=== PATIENT | male | born 1970 | race Caucasian/White ===

== ENCOUNTER 2023-10-22 12:18 | Inpatient (IN) ==
--- NOTE | 2023-10-22 12:23 | ED Triage Note ---
Date of Service October 22, 2023 Provider in Triage Author: Chapincito Hutton History of Present Illness This patient was briefly evaluated while in triage. An abbreviated physical exam was performed. This patient is a 53-year-old Male who presents to the ED for evaluation of chest pressure, increased heart rate and sensation like he is going to pass out. Patient is concerned that he was having a heart issue, with sensation of feeling like he was going to pass out over the past 20 minutes. Symptoms started 5 days ago with what he thought was a panic attack. Patient reports that he did have some pain in the left jaw area on Wednesday as well. He describes it as a pressure sensation. Patient denies any pain radiating into the back or abdomen. Patient rates his discomfort a 6 out of 10. Physical Exam CONSTITUTIONAL: Healthy and well nourished. Alert and oriented X 3. HEENT: No scleral icterus or conjunctival injection. RESPIRATORY: Clear to auscultation bilaterally with no wheezing, crackles, rhonchi or stridor. CARDIOVASCULAR: Regular rate and rhythm with no murmurs, rubs or gallops. INTEGUMENTARY: No rash or other significant dermatologic conditions noted. HEMATOLOGIC: No ecchymosis or petechiae. PSYCHIATRIC: Positive affect. NEUROLOGIC: No focal neurologic deficits noted. Initial orders for labs and / or imaging were placed and patient was placed in the waiting area until a bed is available. Please see further documentation for the full ED course.
[2023-10-22] MEDS: SODIUM CHLORIDE 0.9% 500 ML IV SCH (12:38)
[2023-10-22] MEDS ORDERED: STAT IV Infusion **Titration per Protocol STA ×2 (12:43→14:09)
[2023-10-22] MEDS: dilTIAZem HCl 5 MG/ML 5 ML VIAL IV STA (12:49)
[2023-10-22] MEDS: dilTIAZem HCL 125 MG in DEXTROSE 5% 100 ML IV SCH (12:51)
[2023-10-22 13:02] LABS: Basophils # (auto) 0.08 K/uL (0.00-0.20); Basophils % (auto) 0.6 %; Eosinophils # (auto) 0.19 K/uL (0.00-0.50); Eosinophils % (auto) 1.5 %; Hematocrit (blood only) 47.4 % (42.0-52.0); Hemoglobin 16.5 g/dl (14.0-18.0); Immature Granulocytes # (auto) 0.04 K/uL (0.01-0.20); Immature Granulocytes % (auto) 0.3 %; Lymphocytes # (auto) 4.01 K/uL (1.20-3.40); Lymphocytes % (auto) 32.5 %; Mean Corpuscular Hemoglobin 28.2 pg (25.0-34.0); Mean Corpuscular Hgb Conc 34.8 g/dL (32.0-36.0); Monocytes # (auto) 1.16 K/uL (0.11-0.59); Monocytes % (auto) 9.4 %; Neutrophils # (auto) 6.86 K/uL (1.40-6.50); Neutrophils % (auto) 55.7 %; Platelet Count 347 K/uL (130-400); RDW Coefficient of Variation 12.9 % (11.5-14.5); RDW Standard Deviation 37.7 fL (36.4-46.3); Red Blood Count 5.85 M/uL (4.70-6.10); White Blood Count 12.34 K/ul (4.8-10.8)
[2023-10-22] MEDS: MAGNESIUM SULFATE / D5W 1 GM/100 ML BAG IV STA (13:07)
--- NOTE | 2023-10-22 13:16 | Emergency Department Note ---
Impression & Plan Atrial fibrillation with rapid ventricular response, Near syncope, Palpitations, Chest tightness ED Provider Note NAME: RAEANN MARINA AGE: 53 SEX: M : 1970 ARRIVES VIA: Walk-In INFORMANT: [Patient] ED PROVIDER(S): [Ian Jack MD] CHIEF COMPLAINT: Cardiac assessment HISTORY OF PRESENT ILLNESS: The patient is a 53-year-old male who states that for 6 days, he has noticed intermittent symptoms. He just does not feel well, there is a tightness across his chest, there is a fluttering of his chest, he has felt dizzy and lightheaded and short of breath. He really notices the shortness of breath with exertion. Today, he felt faint while driving and the palpitations seemed worse. He presents for evaluation. Patient states that he did start a new prescription of metformin around the same time his symptoms began, otherwise, no medication changes. The patient has no known cardiac or pulmonary history. PMHx/PSHx/Social Hx: See Below PHYSICAL EXAM: GENERAL: Patient is in no acute distress. HEENT: No acute trauma, normocephalic atraumatic, mucous membranes moist, no nasal congestion. NECK: No stridor, no adenopathy, no meningismus, trachea is midline. LUNGS: Clear to auscultation bilaterally, no wheeze, no rhonchi, breath sounds equal. HEART: Tachycardic and irregular, no obvious murmur. ABDOMEN: Soft, nontender, no peritonitis. EXTREMITIES: No cyanosis, full range of motion of all the joints without pain or difficulty. NEUROLOGIC: Oriented x 3, no acute motor or sensory deficits, no focal weakness. SKIN: No jaundice, no diaphoresis. DIFFERENTIAL DIAGNOSIS: SVT, A-fib, a flutter, V. tach, AK, electrolyte imbalance, thyroid disorder, among others. EMERGENCY DEPARTMENT PROCEDURES: MEDICAL DECISION MAKING: There is a mild leukocytosis, this could be consistent with infection or just the stress of his presentation. There was a normal hemoglobin and platelet count. No coagulopathy. D-dimer testing was negative. A negative D-dimer certainly makes PE less likely. There was no significant electrolyte abnormality, no renal failure. The patient did not have findings of pancreatitis. TSH was slightly high however, the T4 was normal. ECG showed a rapid atrial fibrillation. Cardiac enzyme testing x 1 is not consistent with acute cardiac injury. Chest x-ray did not show mediastinal widening, pneumonia or pneumothorax. A fullness was seen to the right superior mediastinum for which nonemergent CT imaging was recommended. The patient was quite tachycardic and found to be in a rapid A-fib. At times, he would have a few sinus beats and then go back into a rapid A-fib. Patient was aggressively managed. He was given a 500 cc saline bolus. He received 2.5 mg of IV metoprolol. He was given 1 g of IV magnesium. He received a bolus of IV diltiazem and was placed on a diltiazem drip. He was eventually given a bolus of IV amiodarone and placed on an amiodarone drip. I did speak with [facility] cardiology. They recommended starting amiodarone in addition to the diltiazem and then titrating off the diltiazem once the heart rate was adequately controlled. At this point, the cause for his dysrhythmia is unclear. He is in need of a hospital stay and further cardiac workup. I did speak with the patient and case management, the on-call hospitalist was consulted. Patient's heart rate has improved with the medications provided in the ED. Prior/Outside records/notes reviewed: None ECG per my interpretation: Indication was palpitations and shortness of breath. The ECG shows a rapid atrial fibrillation with a rate of around 193. There is some nonspecific ST change. There is no ST elevation, no PVCs. The QTc is 355. Continuous Cardiac Monitoring per my interpretation: An order was placed for continuous cardiac monitoring. The monitor shows a rate of 152 with atrial fibrillation. Imaging/x-ray results per my interpretation: Chest x-ray does not show mediastinal widening, pneumonia or pneumothorax. Chronic Medical/Social conditions affecting care: Care/Management discussed with: Case management and the on-call hospitalist. Cardiology-Dr. Ramírez Level of care consideration(s): After review of the information above and other included data: --I believe the patient requires escalation of care to admission Critical Care Note: I have personally spent 49 minutes of critical care time in the direct management of this patient. This includes bedside care, interpretation of diagnostic studies, and testing, discussion with consultants, patient, and family members, and other required patient management activities. This 49 minutes is in excess of all separately billable procedures. DISPOSITION: Admission Past Med/Surg History Medical History Slow to wake up after anesthesia Prediabetes Achalasia of esophagus Hypertension Fatty infiltration of liver Esophageal reflux Surgical History History of wisdom tooth extraction History of removal of cyst History of esophagogastroduodenoscopy (EGD) History of Marcus fundoplication (~2011) Family History Grandmother (Paternal) Stroke Father Gout Lung cancer Mother Hypertension Stroke Dementia Uncle Epilepsy Other No family history of adverse response to anesthesia Denies family history of Colon cancer Ovarian cancer Prostate cancer Myocardial infarction Breast cancer Social History Smoking Status: Never smoker Second Hand Exposure: No; Do You Dip or Chew Tobacco: No; Hx Alcohol Use: Yes Alcohol type: beer and hard liquor Alcohol Intake Frequency: 2-3 x/Week Hx Substance Use: No Preferred Language: Lao Communication Ability: Effective Visual Impairment: No Limitations Hearing Ability: Normal Inspector And Clipper Required: No Beliefs That Will Affect Care: None marital status: Current Living Situation: Spouse current occupational status: employed 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 How many Children do You have: 0 Feels Safe at Home: Yes Childhood Exposure to Second-Hand Smoke: Yes Diet: regular caffeine: Yes during the past year weight has: decreased > 10 lbs Dental Care, Regularly: Yes Physical Activity Frequency: 1-2 Times per Week Seatbelt Use: always Sunscreen Use: Yes Assistive Devices: Contacts and Glasses Allergies Allergies Allergy/AdvReac Type Severity Reaction Status Date / Time pollen extracts Allergy Mild Runny Nose Verified 10/01/23 08:07 No Known Drug Allergies Allergy Verified 10/01/23 08:07 Home Meds Home Medications Medication Instructions Recorded Confirmed cyanocobalamin (vitamin B-12) 2,000 mcg PO DAILY 10/22/23 10/22/23 2,000 mcg tablet,extended release (Vitamin B-12 ER) esomeprazole magnesium 40 mg 40 mg PO DAILY 10/22/23 10/22/23 capsule,delayed release (Nexium) lisinopril 10 mg tablet 10 mg PO QPM 10/22/23 10/22/23 metformin 1,000 mg tablet 1,000 mg PO BID 10/22/23 10/22/23 Results & Data (ED) Vital Signs Vital Signs - 24 hr 10/22/23 12:21 10/22/23 12:36 10/22/23 12:37 Temperature 37.0 C Temperature Source Temporal Artery Scan Pulse Rate 95 H 218 H 166 H Pulse Rate from SpO2 Sensor Respiratory Rate 20 26 H Respiratory Effort / Characteristics Non-Labored Spontaneous Respiratory Depth Normal Blood Pressure 107/49 L Blood Pressure Mean 68 Pulse Oximetry 100 Oxygen Delivery Method Room Air Sepsis Recent Fever Within 48 Hours No Sepsis New/Unexplained Change in Mental Status No Sepsis Action Taken by Nursing No Action Required 10/22/23 12:38 10/22/23 12:38 10/22/23 12:40 Temperature Temperature Source Pulse Rate 197 H 202 H Pulse Rate from SpO2 Sensor 96 H 109 H Respiratory Rate 24 19 Respiratory Effort / Characteristics Respiratory Depth Blood Pressure 133/103 H Blood Pressure Mean 105 Pulse Oximetry 97 98 Oxygen Delivery Method Sepsis Recent Fever Within 48 Hours Sepsis New/Unexplained Change in Mental Status Sepsis Action Taken by Nursing 10/22/23 12:50 10/22/23 12:56 10/22/23 13:00 Temperature Temperature Source Pulse Rate 225 H 103 H 130 H Pulse Rate from SpO2 Sensor 206 H 101 H Respiratory Rate 18 15 Respiratory Effort / Characteristics Respiratory Depth Blood Pressure Blood Pressure Mean Pulse Oximetry 96 95 Oxygen Delivery Method Sepsis Recent Fever Within 48 Hours Sepsis New/Unexplained Change in Mental Status Sepsis Action Taken by Nursing 10/22/23 13:03 10/22/23 13:10 10/22/23 13:10 Temperature Temperature Source Pulse Rate 152 H 160 H Pulse Rate from SpO2 Sensor 87 Respiratory Rate 22 Respiratory Effort / Characteristics Respiratory Depth Blood Pressure 125/96 Blood Pressure Mean 104 Pulse Oximetry 97 Oxygen Delivery Method Sepsis Recent Fever Within 48 Hours Sepsis New/Unexplained Change in Mental Status Sepsis Action Taken by Nursing 10/22/23 13:20 10/22/23 13:21 10/22/23 13:21 Temperature Temperature Source Pulse Rate 166 H 155 H Pulse Rate from SpO2 Sensor 86 101 H Respiratory Rate 20 20 Respiratory Effort / Characteristics Respiratory Depth Blood Pressure 104/72 Blood Pressure Mean 89 Pulse Oximetry 93 94 Oxygen Delivery Method Sepsis Recent Fever Within 48 Hours Sepsis New/Unexplained Change in Mental Status Sepsis Action Taken by Nursing 10/22/23 13:30 10/22/23 13:30 10/22/23 13:40 Temperature Temperature Source Pulse Rate 159 H Pulse Rate from SpO2 Sensor 73 Respiratory Rate 21 Respiratory Effort / Characteristics Respiratory Depth Blood Pressure 113/66 118/77 Blood Pressure Mean 74 92 Pulse Oximetry 94 Oxygen Delivery Method Sepsis Recent Fever Within 48 Hours Sepsis New/Unexplained Change in Mental Status Sepsis Action Taken by Nursing 10/22/23 13:40 10/22/23 13:49 10/22/23 13:50 Temperature Temperature Source Pulse Rate 152 H 170 H 147 H Pulse Rate from SpO2 Sensor 80 95 H Respiratory Rate 17 11 L Respiratory Effort / Characteristics Respiratory Depth Blood Pressure 118/77 Blood Pressure Mean Pulse Oximetry 94 94 Oxygen Delivery Method Sepsis Recent Fever Within 48 Hours Sepsis New/Unexplained Change in Mental Status Sepsis Action Taken by Nursing 10/22/23 13:51 10/22/23 13:51 10/22/23 14:00 Temperature Temperature Source Pulse Rate 171 H 133 H Pulse Rate from SpO2 Sensor 84 64 Respiratory Rate 22 19 Respiratory Effort / Characteristics Respiratory Depth Blood Pressure 93/62 L Blood Pressure Mean 67 Pulse Oximetry 94 95 Oxygen Delivery Method Sepsis Recent Fever Within 48 Hours Sepsis New/Unexplained Change in Mental Status Sepsis Action Taken by Nursing 10/22/23 14:00 10/22/23 14:10 10/22/23 14:10 Temperature Temperature Source Pulse Rate 141 H Pulse Rate from SpO2 Sensor 72 Respiratory Rate 19 Respiratory Effort / Characteristics Respiratory Depth Blood Pressure 105/80 104/65 Blood Pressure Mean 92 97 Pulse Oximetry 95 Oxygen Delivery Method Sepsis Recent Fever Within 48 Hours Sepsis New/Unexplained Change in Mental Status Sepsis Action Taken by Nursing 10/22/23 14:20 10/22/23 14:20 10/22/23 14:30 Temperature Temperature Source Pulse Rate 150 H 129 H Pulse Rate from SpO2 Sensor 80 75 Respiratory Rate 18 19 Respiratory Effort / Characteristics Respiratory Depth Blood Pressure 93/60 L Blood Pressure Mean 74 Pulse Oximetry 95 95 Oxygen Delivery Method Sepsis Recent Fever Within 48 Hours Sepsis New/Unexplained Change in Mental Status Sepsis Action Taken by Nursing 10/22/23 14:31 10/22/23 14:31 10/22/23 14:38 Temperature Temperature Source Pulse Rate 143 H 130 H Pulse Rate from SpO2 Sensor 70 Respiratory Rate 21 Respiratory Effort / Characteristics Respiratory Depth Blood Pressure 91/58 L 104/70 Blood Pressure Mean 63 Pulse Oximetry 95 Oxygen Delivery Method Sepsis Recent Fever Within 48 Hours Sepsis New/Unexplained Change in Mental Status Sepsis Action Taken by Nursing 10/22/23 14:39 10/22/23 14:39 10/22/23 14:40 Temperature Temperature Source Pulse Rate 129 H 152 H Pulse Rate from SpO2 Sensor 67 73 Respiratory Rate 13 18 Respiratory Effort / Characteristics Respiratory Depth Blood Pressure 119/65 Blood Pressure Mean 87 Pulse Oximetry 96 93 Oxygen Delivery Method Sepsis Recent Fever Within 48 Hours Sepsis New/Unexplained Change in Mental Status Sepsis Action Taken by Nursing 10/22/23 14:40 10/22/23 14:50 10/22/23 14:51 Temperature Temperature Source Pulse Rate 145 H Pulse Rate from SpO2 Sensor 74 Respiratory Rate 17 Respiratory Effort / Characteristics Respiratory Depth Blood Pressure 104/70 106/65 Blood Pressure Mean 79 67 Pulse Oximetry 93 Oxygen Delivery Method Sepsis Recent Fever Within 48 Hours Sepsis New/Unexplained Change in Mental Status Sepsis Action Taken by Nursing 10/22/23 14:51 10/22/23 15:00 10/22/23 15:01 Temperature Temperature Source Pulse Rate 141 H 149 H Pulse Rate from SpO2 Sensor 83 91 H Respiratory Rate 17 15 Respiratory Effort / Characteristics Respiratory Depth Blood Pressure 116/74 Blood Pressure Mean 81 Pulse Oximetry 95 91 Oxygen Delivery Method Sepsis Recent Fever Within 48 Hours Sepsis New/Unexplained Change in Mental Status Sepsis Action Taken by Nursing 10/22/23 15:01 Temperature Temperature Source Pulse Rate 126 H Pulse Rate from SpO2 Sensor 89 Respiratory Rate 17 Respiratory Effort / Characteristics Respiratory Depth Blood Pressure Blood Pressure Mean Pulse Oximetry 97 Oxygen Delivery Method Sepsis Recent Fever Within 48 Hours Sepsis New/Unexplained Change in Mental Status Sepsis Action Taken by Group Home Medications Current Medication List: was personally reviewed by me Laboratory Data Attestation: I reviewed the patient's lab results. 10/22/23 12:32 10/22/23 12:32 Lab Results 10/22/23 Range/Units 12:32 WBC 12.34 H (4.8-10.8) K/ul RBC 5.85 (4.70-6.10) M/uL Hgb 16.5 (14.0-18.0) g/dl Hct 47.4 (42.0-52.0) % MCV 81.0 (80.0-100.0) fL MCH 28.2 (25.0-34.0) pg MCHC 34.8 (32.0-36.0) g/dL RDW Std Deviation 37.7 (36.4-46.3) fL RDW Coeff of Gabriella 12.9 (11.5-14.5) % Plt Count 347 (130-400) K/uL MPV 11.0 (9.4-12.4) fL Immature Gran % (Auto) 0.3 % Neut % (Auto) 55.7 % Lymph % (Auto) 32.5 % Kemper % (Auto) 9.4 % Eos % (Auto) 1.5 % Baso % (Auto) 0.6 % Neut # (Auto) 6.86 H (1.40-6.50) K/uL Lymph # (Auto) 4.01 H (1.20-3.40) K/uL Kemper # (Auto) 1.16 H (0.11-0.59) K/uL Eos # (Auto) 0.19 (0.00-0.50) K/uL Baso # (Auto) 0.08 (0.00-0.20) K/uL Immature Gran # (Auto) 0.04 (0.01-0.20) K/uL PT 10.6 (9.0-12.0) Seconds INR 1.0 (0.9-1.1) APTT 27 (21-31) Seconds PTT Ratio 1.0 D-Dimer 300 (0-500) ug/L FEU Sodium 138 (136-145) mmol/L Potassium 3.8 (3.5-5.1) mmol/L Chloride 104 (98-107) mmol/L Carbon Dioxide 22 (21-32) mmol/L Anion Gap 12 H (3-11) BUN 16 (6-23) mg/dl Creatinine 1.10 (0.6-1.4) mg/dl Est Cr Clr Drug Dosing 89.6 ml/min Est GFR ( Amer) 87.7 ml/min Est GFR (Non-Af Amer) 75.7 ml/min BUN/Creatinine Ratio 14.5 (10-20) Glucose 96 (70-99(Fasting)) mg/dl Calcium 10.3 (8.6-10.3) mg/dl Magnesium 1.9 (1.7-2.4) mg/dl Total Bilirubin 0.7 (0.2-1.0) mg/dl AST 39 (13-39) U/L ALT 73 H (7-52) U/L Alkaline Phosphatase 40 (34-104) U/L Troponin I High Sens 3.1 (0-20) pg/ml Total Protein 8.0 (6.0-8.3) gm/dl Albumin 5.0 (3.4-5.0) gm/dl Globulin 3.0 (2.5-4.0) gm/dl Albumin/Globulin Ratio 1.7 (0.9-2) Lipase 24 (11-82) U/L TSH 5.532 H (0.300-4.500) uIu/ml Free T4 0.78 (0.61-1.60) ng/dl Administered Medications Amiodarone HCl/Dextrose (Nexterone / D5w) 360 mg in 200 mls @ 33.333 mls/hr IV ONE ONE Stop: 10/22/23 20:19 Last Admin: 10/22/23 15:01 Dose: 1 mg/min, 33.3 mls/hr Documented By: CECE Co-signed By: TRACY Discontinued Medications Diltiazem HCl (Diltiazem Hcl 5 Mg/Ml 5 Ml Vial) 15 mg IV NOW STA Stop: 10/22/23 12:44 Last Admin: 10/22/23 12:49 Dose: 15 mg Documented By: CECE Co-signed By: KADEN Sodium Chloride (Nss) 500 mls @ 999 mls/hr IV .Q31M ARISTEO Stop: 10/22/23 13:15 Last Infusion: 10/22/23 13:39 Dose: Infused Documented By: Admin: 10/22/23 12:38 Dose: 999 mls/hr Documented By: CECE Diltiazem HCl 125 mg/ Dextrose 125 mls @ 5 mls/hr IV .Q24H [facility]; Protocol Stop: 11/21/23 12:44 Last Titration: 10/22/23 15:44 Dose: 0 mg/hr, 0 mls/hr Documented By: CECE Co-signed By: ASIA Titration: 10/22/23 14:47 Dose: 5 mg/hr, 5 mls/hr Documented By: CECE Co-signed By: NORMA Titration: 10/22/23 13:12 Dose: 10 mg/hr, 10 mls/hr Documented By: NAYLA Co-signed By: ASIA Admin: 10/22/23 12:51 Dose: 5 mg/hr, 5 mls/hr Documented By: CEEC Co-signed By: KADEN Magnesium Sulfate/Dextrose (Magnesium Sulfate / D5w) 1 gm in 100 mls @ 100 mls/hr IV NOW STA Stop: 10/22/23 13:42 Last Infusion: 10/22/23 15:05 Dose: Infused Documented By: Admin: 10/22/23 13:07 Dose: 100 mls/hr Documented By: NAYLA Amiodarone HCl/Dextrose (Nexterone / D5w) 150 mg in 100 mls @ 600 mls/hr IV NOW STA Stop: 10/22/23 14:18 Last Admin: 10/22/23 14:44 Dose: 600 mls/hr Documented By: CECE Co-signed By: NAYLA Metoprolol Tartrate (Metoprolol Tartrate 1 Mg/Ml Vial) 2.5 mg IV NOW STA Stop: 10/22/23 13:47 Last Admin: 10/22/23 13:49 Dose: 2.5 mg Documented By: CECE Potassium Chloride (Potassium Chloride Crtab 20 Meq Tabcr) 20 meq PO NOW STA Stop: 10/22/23 14:29 Last Admin: 10/22/23 15:48 Dose: 20 meq Documented By: CECE Imaging Data Radiologist's Impression: Chest X-Ray 10/22/23 12:23 XR chest 1V portable CLINICAL HISTORY: Chest pain, nonspecific COMPARISON STUDY: Chest radiograph November 30, 2011. FINDINGS: Lung volumes are normal. Lungs are clear. There is no pneumothorax or pleural effusion. Cardiac size is normal. A right upper mediastinal contour abnormality measuring approximately 3.5 cm is noted. There is no evidence for pulmonary edema. IMPRESSION: 1. No acute cardiopulmonary findings. 2. Right upper mediastinal contour abnormality, measuring approximately 3.5 cm. This may be artifactual however a chest CT with IV contrast is recommended to exclude a vascular abnormality or lymphadenopathy. ACT 112: Negative or not required by law. Electronically signed by: Brent Boone M.D. 10/22/2023 1:42 PM Discharge Plan Visit Data Chief Complaint: Cardiac Assessment Stated Complaint: CHEST PAIN ED Provider: Ian Jack Discharge Problem: Atrial fibrillation with rapid ventricular response, Near syncope, Palpitations, Chest tightness Patient Disposition: Admitted As Inpatient Condition: Serious Discharge Instructions Interventions: ED Discharge Assessment Last Done: 10/22/23 16:04
[2023-10-22 13:30] LABS: Albumin Globulin Ratio 1.7 (0.9-2); BUN Creatinine Ratio 14.5 (10-20); Bilirubin,Total 0.7 mg/dl (0.2-1.0); Calcium 10.3 mg/dl (8.6-10.3); Creatinine Clr Calc Pharmacy 89.6 ml/min; Est GFR (African American) 87.7 ml/min; Est GFR (Non-African American) 75.7 ml/min; Magnesium 1.9 mg/dl (1.7-2.4); Potassium 3.8 mmol/L (3.5-5.1)
[2023-10-22 13:31] LABS: Troponin I High Sensitivity 3.1 pg/ml (0-20)
[2023-10-22 13:41] LABS: Thyroid Stimulating Hormone 5.532 uIu/ml (0.300-4.500)
[2023-10-22 13:42] LABS: D Dimer 300 ug/L FEU (0-500); Partial Thromboplastin Time 27 Seconds (21-31); Prothrombin Time 10.6 Seconds (9.0-12.0)
--- NOTE | 2023-10-22 13:44 | XRay Report ---
XR chest 1V portable CLINICAL HISTORY: Chest pain, nonspecific COMPARISON STUDY: Chest radiograph November 30, 2011. FINDINGS: Lung volumes are normal. Lungs are clear. There is no pneumothorax or pleural effusion. Car diac size is normal. A right upper mediastinal contour abnormality measuring approximately 3.5 cm is noted. There is no evidence for pulmonary edema. IMPRESSION: 1. No acute cardiopulmonary findings. 2. Right upper mediastinal contour abnormality, measuring approximately 3.5 cm. This may be artifactu al however a chest CT with IV contrast is recommended to exclude a vascular abnormality or lymphadeno desean. ACT 112: Negative or not required by law. Electronically signed by: Brent Boone M.D. 10/22/2023 1:42 PM
[2023-10-22] MEDS: METOPROLOL TARTRATE 1 MG/ML VIAL IV STA (13:49)
[2023-10-22] MEDS ORDERED: 0.2 MICRON FILTER SET 1 EACH IV STA (14:09)
[2023-10-22 14:36] LABS: T4 Free Thyroxine 0.78 ng/dl (0.61-1.60)
[2023-10-22] MEDS: AMIODARONE / D5W 150 MG/100 ML BAG IV STA (14:44)
[2023-10-22] MEDS: AMIODARONE / D5W 360 MG/200 ML BAG IV ONE (15:01)
--- NOTE | 2023-10-22 15:07 | History & Physical Report ---
Date of Service October 22, 2023 Assessment & Plan (1) Atrial fibrillation with RVR: Plan: -Admit to the PCU on tele -Patient's HR is currently going between afib with HR int he 90-low 100's and trying to convert back to NSR -Has been hemodynamically stable since arrival -Started to developed intermittent heart palpitations with associated lightheadedness/dizziness and left jaw pain with standing and ambulation -TSH is WNL, no recent alcohol binges, no tobacco abuse, electrolytes are WNL -Does not have LE swelling to suggest DVT, is without pleuritic chest pain, has been hemodynamically stable and stable on RA >Will continue to monitor for now -[id number] score is 2 due to his hx of DM and HT >Patient does not have a hx of major bleeding >After discussions with the patient, he would like to begin anticoagulation -Will start a low dose, weight based heparin drip w/bolus now -Continue to monitor for signs of bleeding -Continue amiodarone drip -Follow cardiology consult -Will obtain TTE -Keep potassium at or above 4 and mag at or above 2.0 -Heparin drip for DVT PPX -HH/DMII diet -AM CBC, CMP, mag, PT/INR (2) Diabetes: Plan: -Hold metformin -Monitor BSG ACHS, goal is 110-160 -Start CF of 50 ACHS for now -Adjust regimen as needed (3) Abnormal CXR: Plan: -Patient noted to have a Right upper mediastinal contour abnormality, measuring approximately 3.5 cm -Could be artifact but recommended a follow-up CT chest w/con for further evaluation -Will wait to obtain until patient is stable from his new onset afib RVR (4) Hypertension: Plan: -Currently stable -Hold lisinopril for now with acute treatment of afib rvr (5) Fatty infiltration of liver: Plan: -ALT is 73 today -Up from 58 as of 12/11/21 -No recent abdominal pain, no jaundice or icterus -Monitor am CMP (6) Esophageal reflux: Plan: -Daily pantoprazole Plan The patient was discussed with History of Present Illness Chief Complaint: heart palpitations, left jaw pain Primary Care Provider: DO Anatoliy Obrien is a 53 year old male with a PMH significant for DMII, Sjogrens syndrome, HTN, fatty liver, and GERD who presented to the [facility] ED on 10/22/23 with complaints of ongoing heart palpitations and left jaw pain which began on 10/16/23. On arrival to the ED he was found to be in new onset afib RVR with HR in the 220's and BP of 107/47 but otherwise stable. Labs were significant for a leukocytosis of 12, AG of 12 with bicarb WNL, ALT of 73, high sen trop WNL and TSH of 5.53 with free T4 of 0.78. Chest xray was read as "1. No acute cardiopulmonary findings. 2. Right upper mediastinal contour abnormality, measuring approximately 3.5 cm. This may be artifactual however a chest CT with IV contrast is recommended to exclude a vascular abnormality or lymphadenopathy.". The patient was initially given 500 mL NSS, 20 meq PO KCL, 1gm IV mag sulfate, 2.5 mg IV lopressor, and 15 mg IV Diltiazem without significant improvement. He was then placed on a Cardizem drip but this also was unsuccessful in improving his rate or rhythm. Cardiology was consulted and recommended the patient be switched to an Amiodarone drip. Prior to admission the patient was started on the Amiodarone drip with bolus. At the time of the exam the patient was sitting in bed in no acute distress. He states that when he first started to develop heart palpitations with mild left jaw pain on 10/15 he thought he was having a panic attack. He states he has had increased stress at work recently. Over the past week he has had intermittent periods of heart palpitations, lightheadedness with standing/walking, with some SOB when his palpitations were at it's worst. He denies recent significant alcohol intake, tobacco abuse, or recreational drug use. His brother does have afib as well and has had to be hospitalized multiple times in the past for RVR. He denies a previous his of major bleeding and is in agreement with starting a heparin drip for now with his CHA2DS.2-VASc score of 2, giving him an increased risk of stroke. He denies recent fever, chills, cough, chest pain, pleuritic chest pain, hemoptysis, nausea, vomiting, abd pain, dysuria hematuria, melena, diarrhea, LE swelling, and recent trauma. Please refer to Dr. Acosta's attestation for any changes to the treatment plan Allergies Allergy/AdvReac Type Severity Reaction Status Date / Time pollen extracts Allergy Mild Runny Nose Verified 10/01/23 08:07 No Known Drug Allergies Allergy Verified 10/01/23 08:07 Home Medications Medication Instructions Recorded Confirmed Type cyanocobalamin (vitamin B-12) 2,000 mcg PO DAILY 10/22/23 10/22/23 History 2,000 mcg tablet,extended release (Vitamin B-12 ER) esomeprazole magnesium 40 mg 40 mg PO DAILY 10/22/23 10/22/23 History capsule,delayed release (Nexium) lisinopril 10 mg tablet 10 mg PO QPM 10/22/23 10/22/23 History metformin 1,000 mg tablet 1,000 mg PO BID 10/22/23 10/22/23 History Past Med/Surg History Medical History Slow to wake up after anesthesia Prediabetes Achalasia of esophagus Hypertension Fatty infiltration of liver Esophageal reflux Surgical History History of wisdom tooth extraction History of removal of cyst History of esophagogastroduodenoscopy (EGD) History of Marcus fundoplication (~2011) Family History Grandmother (Paternal) Stroke Father Gout Lung cancer Mother Hypertension Stroke Dementia Uncle Epilepsy Other No family history of adverse response to anesthesia Denies family history of Colon cancer Ovarian cancer Prostate cancer Myocardial infarction Breast cancer Social History Smoking Status: Never smoker Second Hand Exposure: No; Do You Dip or Chew Tobacco: No; Tobacco Cessation Education Requested by Patient: No Hx Alcohol Use: No Hx Substance Use: No Preferred Language: Mexican Communication Ability: Effective Visual Impairment: No Limitations Hearing Ability: Normal Mdm Developer Required: Yes Beliefs That Will Affect Care: None marital status: Current Living Situation: Spouse current occupational status: employed 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 How many Children do You have: 0 Other Information That Helps Us Care for You: No Feels Safe at Home: Yes Safety Concerns: Feels Safe At This Time Childhood Exposure to Second-Hand Smoke: Yes Diet: regular caffeine: Yes during the past year weight has: decreased > 10 lbs Dental Care, Regularly: Yes Physical Activity Frequency: 1-2 Times per Week Seatbelt Use: always Sunscreen Use: Yes Assistive Devices: None Physical Exam Physical Exam: Physical Exam: General: In no acute distress, stated age, well-nourished, good hygiene HEENT: Normocephalic, atraumatic, no scleral icterus, pupils around round, symmetrical, and reactive to light, moist mucus membranes, trachea midline, no thyromegaly Chest/Pulm: No respiratory distress, symmetrical chest expansion, clear breath sounds throughout Cardiac: irregular rate and rhythm, no murmurs noted Abdomen: Negative for ascites and bruising, normoactive bowel sounds, soft, non-tender to palpation throughout Musculoskeletal: Symmetrical and without signs of acute trauma, upper and lower extremities with full ROM, no atrophy, spasticity, or flaccidity Extremities: Radial, dorsalis pedis, and posterior tibial pulses are intact and symmetrical, no edema noted in the BL LE's Skin: Warm, dry, no rashes , lesions, or scars noted Neuro: Alert and oriented to person, place, month, year, and president, no focal defects, no tremors noted Psych: No acute distress, calm and cooperative during the exam Results & Data Results & Data Vital Signs (Past 12 Hours) Vital Signs Temp Pulse Resp BP Pulse Ox O2 Del Method 10/22/23 14:40 104/10/22/23 14:40 152 H 18 93 10/22/23 14:39 129 H 13 96 10/22/23 14:39 119/65 10/22/23 14:38 130 H 104/70 10/22/23 14:31 143 H 21 95 10/22/23 14:31 91/58 L 10/22/23 14:30 129 H 19 95 10/22/23 14:20 93/60 L 10/22/23 14:20 150 H 18 95 10/22/23 14:10 104/65 10/22/23 14:10 141 H 19 95 10/22/23 14:00 105/80 10/22/23 14:00 133 H 19 95 10/22/23 13:51 171 H 22 94 10/22/23 13:51 93/62 L 04/05/24 13:50 147 H 11 L 94 10/22/23 13:49 170 H 118/77 10/22/23 13:40 152 H 17 94 10/22/23 13:40 118/77 10/22/23 13:30 159 H 21 94 10/22/23 13:30 113/66 10/22/23 13:21 155 H 20 94 10/22/23 13:21 104/72 10/22/23 13:20 166 H 20 93 10/22/23 13:10 160 H 22 97 10/22/23 13:10 125/96 10/22/23 13:03 152 H 10/22/23 13:00 130 H 15 95 10/22/23 12:56 103 H 10/22/23 12:50 225 H 18 96 10/22/23 12:40 202 H 19 98 10/22/23 12:38 197 H 24 97 10/22/23 12:38 133/103 H 10/22/23 12:37 166 H 10/22/23 12:36 218 H 26 H 10/22/23 12:21 37.0 C 95 H 20 107/49 L 100 Room Air Laboratory Results Abnormal lab results 10/22/23 Range/Units 12:32 WBC 12.34 H (4.8-10.8) K/ul Neut # (Auto) 6.86 H (1.40-6.50) K/uL Lymph # (Auto) 4.01 H (1.20-3.40) K/uL [place] # (Auto) 1.16 H (0.11-0.59) K/uL Anion Gap 12 H (3-11) ALT 73 H (7-52) U/L TSH 5.532 H (0.300-4.500) uIu/ml Diagnostic Findings Chest X-Ray 10/22/23 12:23 XR chest 1V portable CLINICAL HISTORY: Chest pain, nonspecific COMPARISON STUDY: Chest radiograph November 30, 2011. FINDINGS: Lung volumes are normal. Lungs are clear. There is no pneumothorax or pleural effusion. Cardiac size is normal. A right upper mediastinal contour abnormality measuring approximately 3.5 cm is noted. There is no evidence for pulmonary edema. IMPRESSION: 1. No acute cardiopulmonary findings. 2. Right upper mediastinal contour abnormality, measuring approximately 3.5 cm. This may be artifactual however a chest CT with IV contrast is recommended to exclude a vascular abnormality or lymphadenopathy. ACT 112: Negative or not required by law. Electronically signed by: Brent Boone M.D. 10/22/2023 1:42 PM ECG Additional Comments: Atrial fibrillation with rapid ventricular response Abnormal ECG No previous ECGs available Code Status & VTE Plan Code Status Full code VTE Prophylaxis Plan VTE Prophylaxis will be ordered: Yes Supervising Physician Co-Signing Physician Notes I personally saw and examined the patient. I verified all cespedes points and agree with Wilfredo Covington PA-C with the following exceptions and/or additions: 53 year old presents to the ER with chest pain with heart palpitations intermittently. Noted to be in a. fib with RVR in the ER. O/E HS RRR, no murmurs, Chest CTAB, Abdo SNT A/P Atrial fibrillation with RVR - now feeling much improved in NSR with IV amiodarone when seen. IV amiodarone (rhythm control) recommended by Dr Ramírez as reportedly very symptomatic with increased rate in limited effect of metoprolol and diltiazem. If echo normal in the morning would consider flecainide over amiodarone given his young age and will consult cardiology to make this decision. Continue IV heparin for stroke prophylaxis overnight then can switch to oral anticoagulation tomorrow if nothing needs to be done about his CXR finding. PG Care Time/CCT Total # of Minutes Spent Total Time Spent with Patient: Total time spent is greater than 50% in coordination of care (as documented) at patient's floor/unit and/or counseling patient: [place] [address] INT INP/OBS CARE 3/75MIN Patient Type New Medical Decision Making High Complexity Diagnoses Atrial fibrillation with RVR I48.91 Type 2 diabetes mellitus without complication, without long-term current use of insulin E11.9 Diabetes mellitus complication status: without complication Diabetes mellitus jail insulin use: without jail use Diabetes mellitus type: type 2 Abnormal CXR R93.89 Essential hypertension I10 Hypertension type: essential hypertension Fatty infiltration of liver K76.0 Gastroesophageal reflux disease without esophagitis K21.9 Esophagitis presence: without esophagitis (2) Diabetes Diabetes mellitus complication status: without complication Diabetes mellitus jail insulin 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
[2023-10-22] MEDS ORDERED: Heparin IV Adult Wt-Based Low-Dose w/ INITIAL Bolus Protocol IV SCH (15:26)
[2023-10-22] MEDS ORDERED: DEXTROSE 50% 50 ML SYRINGE IV PRN (15:32)
[2023-10-22] MEDS ORDERED: CARBOHYDRATES FOR HYPOGLYCEMIA PO PRN (15:32)
[2023-10-22] MEDS ORDERED: GLUCOSE 10 TAB/TUBE PO PRN (15:32)
[2023-10-22] MEDS ORDERED: GLUCAGON FOR INJ 1 MG VIAL SQ PRN (15:32)
[2023-10-22] MEDS ORDERED: GLUCOSE 40% GEL 15 GM TUBE PO PRN (15:32)
[2023-10-22] MEDS: POTASSIUM CHLORIDE CRTAB 20 MEQ TABCR PO STA (15:48)
[2023-10-22] MEDS: HEPARIN SOD (PORCINE) 1000 UNIT/ML IV ONE (16:43)
[2023-10-22] MEDS: HEPARIN SODIUM/DEXTROSE 25,000 UNITS/500 ML BAG IV SCH (16:44)
[2023-10-22] MEDS: PANTOprazole 40 MG TAB PO STA (17:07)
[2023-10-22] MEDS: INSULIN ASPART PER UNIT CHARGE SC SCH (18:45)
[2023-10-22] MEDS: AMIODARONE IV BOLUS & DRIP IV STA (18:58)
[2023-10-22] MEDS: AMIODARONE / D5W 360 MG/200 ML BAG IV SCH (19:55)
[2023-10-22 20:10] LABS: Appearance Urine Clear (Clear); Bacteria Urine Automated Negative (Negative); Bilirubin Urine Negative (Negative); Blood Urine Negative (Negative); Cast Urine Automated 0 /lpf (0-5); Color Urine Yellow; Epithelial Cell Urine Auto 0-5 /lpf (0-5); Glucose Urine UA Negative (Negative); Ketones Urine 1+ (Negative); Leukocyte Esterase Urine Negative (Negative); Nitrite Urine Negative (Negative); Protein Urine Trace (Negative); RBC Urine Automated 0-4 /hpf (0-4); Urobilinogen Urine Negative (Negative); WBC Urine Automated 0 /hpf (0-5)
[2023-10-22] MEDS: PANTOprazole 40 MG TAB PO SCH (21:12)
[2023-10-22] MEDS: metFORMIN HCL 500 MG TAB PO SCH (21:12)
[2023-10-23 00:15] LABS: ANTI-Xa, UFH(UnfractionatedHep 0.27 IU/ml (0.3-0.7)
[2023-10-23 06:33] LABS: Basophils # (auto) 0.06 K/uL (0.00-0.20); Basophils % (auto) 0.7 %; Eosinophils # (auto) 0.29 K/uL (0.00-0.50); Eosinophils % (auto) 3.5 %; Hematocrit (blood only) 44.7 % (42.0-52.0); Hemoglobin 15.3 g/dl (14.0-18.0); Immature Granulocytes # (auto) 0.03 K/uL (0.01-0.20); Immature Granulocytes % (auto) 0.4 %; Lymphocytes % (auto) 29.8 %; Mean Corpuscular Hgb Conc 34.2 g/dL (32.0-36.0); Mean Corpuscular Volume 81.7 fL (80.0-100.0); Mean Platelet Volume 10.9 fL (9.4-12.4); Monocytes # (auto) 0.63 K/uL (0.11-0.59); Monocytes % (auto) 7.5 %; Neutrophils # (auto) 4.89 K/uL (1.40-6.50); Neutrophils % (auto) 58.1 %; Platelet Count 268 K/uL (130-400); RDW Coefficient of Variation 12.9 % (11.5-14.5); RDW Standard Deviation 38.2 fL (36.4-46.3); Red Blood Count 5.47 M/uL (4.70-6.10)
[2023-10-23 06:55] LABS: Albumin Globulin Ratio 1.6 (0.9-2); Albumin Level 4.4 gm/dl (3.4-5.0); BUN Creatinine Ratio 14.5 (10-20); Bilirubin,Total 0.7 mg/dl (0.2-1.0); Calcium 9.3 mg/dl (8.6-10.3); Est GFR (African American) 87.7 ml/min; Est GFR (Non-African American) 75.7 ml/min; Globulin 2.8 gm/dl (2.5-4.0); Magnesium 2.1 mg/dl (1.7-2.4); Potassium 4.1 mmol/L (3.5-5.1); Total Protein 7.2 gm/dl (6.0-8.3)
[2023-10-23 06:58] LABS: Prothrombin Time 10.9 Seconds (9.0-12.0)
[2023-10-23 07:16] LABS: ANTI-Xa, UFH(UnfractionatedHep 0.26 IU/ml (0.3-0.7)
--- NOTE | 2023-10-23 07:36 | Electrocardiogram Report ---
Test Reason : Blood Pressure : / mmHG Vent. Rate : 193 BPM Atrial Rate : 000 BPM P-R Int : 000 ms QRS Dur : 076 ms QT Int : 198 ms P-R-T Axes : 000 080 033 degrees QTc Int : 355 ms Paroxysmal Atrial fibrillation with rapid ventricular response vs runs of rapid PAT Abnormal ECG No previous ECGs available Confirmed by Ronnie Ramírez ([id number]) on 10/23/2023 7:36:27 AM Referred By: REFERRED SELF Confirmed By:Ronnie Ramírez
--- NOTE | 2023-10-23 07:42 | Electrocardiogram Report ---
Test Reason : Blood Pressure : / mmHG Vent. Rate : 086 BPM Atrial Rate : 086 BPM P-R Int : 136 ms QRS Dur : 100 ms QT Int : 388 ms P-R-T Axes : 019 036 029 degrees QTc Int : 464 ms Normal sinus rhythm Normal ECG When compared with ECG of 22-OCT-2023 12:26, Atrial runs are no longer present Vent. rate has decreased BY 107 BPM Confirmed by Paolo Chavez ([id number]) on 10/23/2023 7:41:57 AM Referred By: REFERRED SELF Confirmed By:Paolo Chavez
[2023-10-23] MEDS ORDERED: PANTOprazole 40 MG TAB PO SCH (09:00)
--- NOTE | 2023-10-23 10:51 | Cardiology Consultation ---
Date of Consultation October 23, 2023 Assessment & Plan (1) Atrial tachycardia: (2) Atrial fibrillation with rapid ventricular response: (3) Near syncope: Plan ASSESSMENT/PLAN: 1. Atrial tachycardia/atrial fibrillation: Upon review of the ECGs and telemetry, suspect atrial tachycardia however heart rates quite elevated in the low 200s at times prior to amiodarone. Cannot completely exclude atrial fibrillation so can continue anticoagulation for stroke risk reduction for now. We discussed findings and possible treatment strategies. Amiodarone is not optimal long-term treatment plan given his young age. We discussed option of discharging home on oral amiodarone with close follow-up with electrophysiology to help determine next step, such as different medical therapy versus ablation consideration. Also, suggested discontinuing amiodarone now while overlapping with metoprolol to see if beta-gabino can suppress the arrhythmia. He would like to do this, and expressed understanding that the arrhythmia may return. He would like to be further evaluated in the hospital while making this change. Start metoprolol tartrate 50 mg and discontinue amiodarone 2 hours later. This was discussed with nursing staff. Then start metoprolol tartrate 25 mg twice daily but this can be further titrated as necessary. Could consider other antiarrhythmic therapy such as class Ic agent but would not want to overlap with amiodarone and therefore would want a washout. 2. Near syncope: Likely due to his presenting arrhythmia with heart rates in the low 200s. Near-syncope has resolved once predominant rhythm became sinus. 3. Disposition: Cardiology will continue to follow while hospitalized. Recommend electrophysiology follow-up. Patient care discussed with Dr. Vaz of the primary hospitalist service. Thank you for allowing me to participate in the care of your patient. Please call for any other questions or concerns. Sincerely, Edison Chavez M.D. History of Present Illness Reason for Consultation: possible afib Requesting Physician: Dr. Acosta Attending Physician: Smita Vaz MD History of Present Illness Mr. Mello is a very pleasant 53-year-old gentleman with a history significant for type 2 diabetes, hypertension, fatty liver, and Sjogren's syndrome. He was admitted on 10/22/2023 for arrhythmia. On 10/16/2023, he developed palpitations described as a flutter sensation and diaphoresis. He felt as though he may have been having a panic attack. The symptoms persisted throughout the week but the initial onset, was the most intense. He tried to check his blood pressure and heart rate with a pulse oximeter and blood pressure cuff however he had difficulty finding readings. Symptoms improved after few hours but he did not return back to baseline. The next day, he had continued symptoms and noted dyspnea on exertion with his typical exertion at work. The symptoms persisted throughout the week with palpitations and dyspnea on exertion and he had intermittent chest tightness, which was not exertional. He also had intermittent nausea. On 10/22/2023, while driving a car, he became lightheaded and near syncopal. He pulled over and had his drive him to the hospital. He admits that work has been more stressful for the past 2 weeks which is why he felt it may have been a panic attack but became concerned when symptoms never resolved. He has never had the symptoms before. He walks at work for exercise up to 10,000 steps and prior to the winter, would walk up to 2 miles outside without exertional symptoms. He denies vomiting, diarrhea, fevers, syncope, exertional chest pain, shortness of breath at rest, orthopnea, or edema. In the emergency department, he was noted to have sinus complexes followed by atrial runs concerning for atrial fibrillation. Per records, diltiazem IV was given without obvious improvement. He was then placed on amiodarone IV. Tachyarrhythmia burden significantly improved and he has been in sinus rhythm today with only very brief, nonsustained atrial runs, only on occasion. Review of systems: As above. Review of systems otherwise negative/unremarkable. Family history: Brother had atrial fibrillation. No known premature CAD. Social history: Denies smoking or drug abuse. Occasional alcohol. Lives at home with his . No children. 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 His , niece, and nephew are present at the bedside. Allergies Allergy/AdvReac Type Severity Reaction Status Date / Time pollen extracts Allergy Mild Runny Nose Verified 10/01/23 08:07 No Known Drug Allergies Allergy Verified 10/01/23 08:07 Home Medications Medication Instructions Recorded Confirmed Type cyanocobalamin (vitamin B-12) 2,000 mcg PO DAILY 10/22/23 10/22/23 History 2,000 mcg tablet,extended release (Vitamin B-12 ER) esomeprazole magnesium 40 mg 40 mg PO DAILY 10/22/23 10/22/23 History capsule,delayed release (Nexium) lisinopril 10 mg tablet 10 mg PO QPM 10/22/23 10/22/23 History metformin 1,000 mg tablet 1,000 mg PO BID 10/22/23 10/22/23 History Patient History Medical History (Updated 10/23/23 @ 16:57 by Paolo Chavez MD) Type 2 diabetes mellitus Slow to wake up after anesthesia Prediabetes Achalasia of esophagus Hypertension Fatty infiltration of liver Esophageal reflux Surgical History History of wisdom tooth extraction History of removal of cyst History of esophagogastroduodenoscopy (EGD) History of Marcus fundoplication (~2011) Family History Grandmother (Paternal) Stroke Father Gout Lung cancer Mother Hypertension Stroke Dementia Uncle Epilepsy Other No family history of adverse response to anesthesia Denies family history of Colon cancer Ovarian cancer Prostate cancer Myocardial infarction Breast cancer Social History Smoking Status: Never smoker Second Hand Exposure: No; Do You Dip or Chew Tobacco: No; Tobacco Cessation Education Requested by Patient: No Hx Alcohol Use: No Hx Substance Use: No Preferred Language: Zambian Communication Ability: Effective Visual Impairment: No Limitations Hearing Ability: Normal Risk Manager Required: Yes Beliefs That Will Affect Care: None marital status: Current Living Situation: Spouse current occupational status: employed 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 Alert and oriented. HEENT: Anicteric sclera. Neck: No JVD. No bruits. Normal carotid upstrokes bilaterally. Cardiac: No ventricular heave. Regular. Normal S1-S2. No murmurs, rubs, or gallops. Pulmonary: Clear to auscultation bilaterally without wheezes, rales, or rhonchi. Abdomen: Soft, nontender, nondistended, with normoactive bowel sounds. No bruits noted. Extremities: 2+ radial pulses bilaterally. 2+ posterior tibialis pulses bilaterally. No edema or cyanosis. Psychiatric: Affect appears appropriate. Results & Data Vital Signs (Past 12 Hours) Vital Signs Temp Pulse Pulse Resp BP BP Pulse Ox 10/23/23 08:00 85 10/23/23 07:42 36.6 C 83 19 129/88 95 10/23/23 03:53 36.7 C 78 16 121/84 98 10/22/23 23:10 36.7 C 80 16 111/75 97 10/22/23 23:00 79 O2 Del Method 10/23/23 08:00 10/23/23 07:42 Room Air 10/23/23 03:53 Room Air 10/22/23 23:10 Room Air 10/22/23 23:00 Laboratory Results Laboratory Results - last 24 hr 10/22/23 10/22/23 10/22/23 12:32 18:39 20:19 WBC 12.34 H RBC 5.85 Hgb 16.5 Hct 47.4 MCV 81.0 MCH 28.2 MCHC 34.8 RDW Std Deviation 37.7 RDW Coeff of Gabriella 12.9 Plt Count 347 MPV 11.0 Immature Gran % (Auto) 0.3 Neut % (Auto) 55.7 Lymph % (Auto) 32.5 Meigs % (Auto) 9.4 Eos % (Auto) 1.5 Baso % (Auto) 0.6 Neut # (Auto) 6.86 H Lymph # (Auto) 4.01 H Meigs # (Auto) 1.16 H Eos # (Auto) 0.19 Baso # (Auto) 0.08 Immature Gran # (Auto) 0.04 PT 10.6 INR 1.0 APTT 27 PTT Ratio 1.0 D-Dimer 300 Heparin Anti-Xa, Unfract Sodium 138 Potassium 3.8 Chloride 104 Carbon Dioxide 22 Anion Gap 12 H BUN 16 Creatinine 1.10 Est Cr Clr Drug Dosing 89.6 Est GFR ( Amer) 87.7 Est GFR (Non-Af Amer) 75.7 BUN/Creatinine Ratio 14.5 Glucose 96 POC Glucose 126 H 125 H Calcium 10.3 Magnesium 1.9 Total Bilirubin 0.7 AST 39 ALT 73 H Alkaline Phosphatase 40 Troponin I High Sens 3.1 Total Protein 8.0 Albumin 5.0 Globulin 3.0 Albumin/Globulin Ratio 1.7 Lipase 24 TSH 5.532 H Free T4 0.78 Urine Color Urine Appearance Urine pH Ur Specific [place] Urine Protein Urine Glucose (UA) Urine Ketones Urine Blood Urine Nitrite Urine Bilirubin Urine Urobilinogen Ur Leukocyte Esterase Urine WBC (Auto) Urine RBC (Auto) U Hyaline Cast (Auto) U Epithel Cells (Auto) Urine Bacteria (Auto) 10/22/23 10/22/23 10/23/23 22:43 Unknown 05:46 WBC 8.40 RBC 5.47 Hgb 15.3 Hct 44.7 MCV 81.7 MCH 28.0 MCHC 34.2 RDW Std Deviation 38.2 RDW Coeff of Gabriella 12.9 Plt Count 268 MPV 10.9 Immature Gran % (Auto) 0.4 Neut % (Auto) 58.1 Lymph % (Auto) 29.8 Meigs % (Auto) 7.5 Eos % (Auto) 3.5 Baso % (Auto) 0.7 Neut # (Auto) 4.89 Lymph # (Auto) 2.50 Meigs # (Auto) 0.63 H Eos # (Auto) 0.29 Baso # (Auto) 0.06 Immature Gran # (Auto) 0.03 PT 10.9 INR 1.0 APTT PTT Ratio D-Dimer Heparin Anti-Xa, Unfract 0.27 L 0.26 L Sodium 134 L Potassium 4.1 Chloride 104 Carbon Dioxide 22 Anion Gap 8 BUN 16 Creatinine 1.10 Est Cr Clr Drug Dosing 92.0 Est GFR ( Amer) 87.7 Est GFR (Non-Af Amer) 75.7 BUN/Creatinine Ratio 14.5 Glucose 159 H POC Glucose Calcium 9.3 Magnesium 2.1 Total Bilirubin 0.7 AST 37 ALT 69 H Alkaline Phosphatase 36 Troponin I High Sens Total Protein 7.2 Albumin 4.4 Globulin 2.8 Albumin/Globulin Ratio 1.6 Lipase TSH Free T4 Urine Color Yellow Urine Appearance Clear Urine pH 5.0 Ur Specific [place] 1.020 Urine Protein Trace H Urine Glucose (UA) Negative Urine Ketones 1+ H Urine Blood Negative Urine Nitrite Negative Urine Bilirubin Negative Urine Urobilinogen Negative Ur Leukocyte Esterase Negative Urine WBC (Auto) 0 Urine RBC (Auto) 0-4 U Hyaline Cast (Auto) 0 U Epithel Cells (Auto) 0-5 Urine Bacteria (Auto) Negative 10/23/23 07:34 WBC RBC Hgb Hct MCV MCH MCHC RDW Std Deviation RDW Coeff of Gabriella Plt Count MPV Immature Gran % (Auto) Neut % (Auto) Lymph % (Auto) Meigs % (Auto) Eos % (Auto) Baso % (Auto) Neut # (Auto) Lymph # (Auto) Meigs # (Auto) Eos # (Auto) Baso # (Auto) Immature Gran # (Auto) PT INR APTT PTT Ratio D-Dimer Heparin Anti-Xa, Unfract Sodium Potassium Chloride Carbon Dioxide Anion Gap BUN Creatinine Est Cr Clr Drug Dosing Est GFR ( Amer) Est GFR (Non-Af Amer) BUN/Creatinine Ratio Glucose POC Glucose 154 H Calcium Magnesium Total Bilirubin AST ALT Alkaline Phosphatase Troponin I High Sens Total Protein Albumin Globulin Albumin/Globulin Ratio Lipase TSH Free T4 Urine Color Urine Appearance Urine pH Ur Specific [place] Urine Protein Urine Glucose (UA) Urine Ketones Urine Blood Urine Nitrite Urine Bilirubin Urine Urobilinogen Ur Leukocyte Esterase Urine WBC (Auto) Urine RBC (Auto) U Hyaline Cast (Auto) U Epithel Cells (Auto) Urine Bacteria (Auto) Diagnostic Findings Echo 10/23/2023: 1. Normal left ventricular size and systolic function. EF 55-60%. No regional wall motion abnormalities. No left ventricular hypertrophy. 2. No significant valvular abnormalities. 3. Normal estimated right ventricular systolic pressure. 4. Technically difficult study, enhanced with IV Definity. 5. Sinus rhythm. 6. No prior study available for comparison. Labs reviewed and notable for stable renal function, normal potassium, normal magnesium, mildly elevated TSH, normal blood counts. History and physical reviewed. Chest x-ray 10/22/2023: No acute cardiopulmonary findings. Per radiology, right upper mediastinal contour abnormality which may be artifactual. ECGs personally reviewed: ECG 10/22/2023: Sinus complexes with probable atrial tachycardia but cannot exclude A-fib with RVR runs. Heart rate 193 bpm. ECG 10/23/2023 at 6:12 AM: Sinus 86 bpm. Telemetry personally reviewed: Initially, very frequent supraventricular runs with heart rates in the low 200s. There would be occasional sinus complexes. The tachyarrhythmia was narrow complex and irregular at times. Over the evening of 10/22/2023, the burden improved and then predominantly sinus rhythm with only very rare short atrial runs which appeared to be atrial tachycardia today. CT chest 10/22/2023: Left lower lobe 2 mm nodule per radiology. Medications Administered Current Inpatient Medications Apixaban (Apixaban 5 Mg Tablet) 5 mg PO Q12H ARISTEO Stop: 11/22/23 16:59 Last Admin: 10/23/23 16:56 Dose: 5 mg Dextrose (Dextrose 50% 50 Ml Syringe) 25 - 50 ml IV UD PRN; Protocol PRN Reason: Hypoglycemia Protocol Stop: 11/21/23 15:31 Glucagon (Glucagon For Inj 1 Mg Vial) 1 mg SQ UD PRN; Protocol PRN Reason: Hypoglycemia Protocol Stop: 11/21/23 15:31 Glucose (Glucose 10 Tab/Tube) 4 - 8 tab PO UD PRN; Protocol PRN Reason: Hypoglycemia Treatment Stop: 11/21/23 15:31 Glucose (Glucose 40% Gel 15 Gm Tube) 15 - 30 gm PO UD PRN; Protocol PRN Reason: Hypoglycemia Protocol Stop: 11/21/23 15:31 Insulin Aspart (Insulin Aspart Per Unit Charge) 0 units SC ACHS ARISTEO Stop: 11/21/23 16:29 Last Admin: 10/23/23 16:55 Dose: Not Given Metoprolol Tartrate (Metoprolol Tartrate 25 Mg Tab) 25 mg PO BID ARISTEO Stop: 11/22/23 20:59 Miscellaneous (Carbohydrates For Hypoglycemia ) 15 - 30 gm PO UD PRN PRN Reason: Hypoglycemia Protocol Stop: 11/21/23 15:31 Pantoprazole Sodium (Pantoprazole 40 Mg Tab) 40 mg PO HS ARISTEO Stop: 11/21/23 20:59 Last Admin: 10/22/23 21:12 Dose: 40 mg PG Care Time/CCT Total # of Minutes Spent Total Time Spent with Patient: Total time spent is greater than 50% in coordination of care (as documented) at patient's floor/unit and/or counseling patient: Coding Level of Care Code 84247 IN/OBS CONSULT LVL 5,80M Diagnoses Atrial tachycardia I47.19 Atrial fibrillation with rapid ventricular response I48.91 Near syncope R55
--- NOTE | 2023-10-23 10:55 | XCELERA ---
[id number] [id number]
[2023-10-23] MEDS: OPTIRAY 320 100ml IV ONE (11:03)
[2023-10-23] MEDS: METOPROLOL TARTRATE 50 MG TAB PO STA (14:24)
[2023-10-23 14:46] LABS: ANTI-Xa, UFH(UnfractionatedHep 0.26 IU/ml (0.3-0.7)
[2023-10-23] MEDS: [UNRECOGNIZED DRUG - REMARK] ONE (15:31)
--- NOTE | 2023-10-23 15:32 | CT Scan Report ---
CT chest diagnostic w con CLINICAL HISTORY: right mediastinal abnormality on CXR TECHNIQUE: Multidetector row helical CT of the chest was performed with intravenous contrast. Coronal and sagittal reformations were obtained. Automated dose lowering techniques and/or adjustment accord ing to patient size were utilized for this exam. CT DOSE: 983.29 mGy.cm Comparison: Comparison is made to chest radiograph 10/22/2023 FINDINGS: Lungs and pleura: There is a 2 mm nodule in the left lower lobe (series 4 image 174). Heart and pericardium: Heart size is normal. No pericardial effusion. Vessels: Mild atherosclerotic changes in the aorta and coronary arteries. Mediastinum and alejo: Unremarkable. Chest wall and lower neck: Unremarkable. Abdomen: Hepatic steatosis is noted. Right renal cyst is seen. Bones: Unremarkable. IMPRESSION: 1. No acute abnormality and in particular no density to correspond to the density seen in the right upper mediastinal contour. This likely represented prominent right subclavian artery. 2. 2 mm nodule in the left lower lobe. According to Fleischner criteria, no follow-up is required in low risk patients, in high-risk patients, a 12 month follow-up CT can be optionally performed. ACT 112: Negative or not required by law. Electronically signed by: Vinicio Rai M.D. 10/23/2023 3:30 PM
[2023-10-23] MEDS ORDERED: HEPARIN SODIUM/DEXTROSE 25,000 UNITS/500 ML BAG IV SCH (15:45)
[2023-10-23] MEDS: APIXABAN 5 MG TABLET PO SCH (16:56)
--- NOTE | 2023-10-23 18:20 | Hospitalist Progress Note ---
Date of Service October 23, 2023 Assessment & Plan (1) Atrial tachycardia: Plan: 53 y/o with type 2 DM and HTN presented with lightheadedness, palpitations, near syncope found to be in an SVT rate 200. This did not respond to diltiazem 15 mg IV so he was started on IV amiodarone bolus and drip. He converted to NSR. After that he was asymptomatic. TTE was technically difficult study but was normal. TSH normal. EKGs and tele reviewed by consulting property loss insurance claim adjuster. There is irregularity so unable to rule out afib, however the high initial rate and ongoing very short bursts of SVT make it seem more likely atrial tachycardia. After discussion with Mr. Mello about risks and benefits of oral amiodarone temporarily vs trial of B-gabino, decided on toprol XL which was initiated. Continue tele monitoring tonight assess response to toprol XL CHADS Vasc is 2 so he would benefit from anticoagulation if this is in fact afib, so initiated apixaban. Discussed risks and benefits of blood thinners - bleeding vs stroke risk. Plan for EP referral (2) Diabetes: Plan: -Hold metformin -Monitor BSG ACHS, goal is 110-160 -Start CF of 50 ACHS for now -Adjust regimen as needed (3) Abnormal CXR: Plan: -Patient noted to have a Right upper mediastinal contour abnormality, measuring approximately 3.5 cm -CT chest with contrast obtained - personally reviewed CT images and report - there is no mediastinal or RUL abnormality. Radiologist thought CXR appearance was probably prominent subclavian artery. 2 mm lower lobe pulmonary nodule does not require dedicated CT follow up by Fleischner criteria as he is low risk, never smoker. -discussed findings with the patient and his (4) Hypertension: Plan: -Currently stable -Hold lisinopril -assess BP response to metoprolol (5) Fatty infiltration of liver: Plan: -ALT is 73 today -Up from 58 as of 12/11/21 -No recent abdominal pain, no jaundice or icterus -lifestyle measures and diabetic treatment - follow up in primary care (6) Esophageal reflux: Plan: -Daily pantoprazole Admission and Anticipated Discharge Date Admission Date: October 22, 2023 Subjective Feels well today after converting to sinus rhythm overnight No lightheadedness dyspnea or chest pain Never has been a smoker, does not drink very much alcohol Brother has afib Physical Exam 2 Physical Exam: PHYSICAL EXAMINATION Last 24h vital signs reviewed, see documentation in flowsheet General: comfortable appearing, no distress HEENT: Normocephalic, atraumatic, pupils round and equal, sclerae anicteric, no conjunctival injection, moist mucus membranes Lungs: Normal respiratory effort. Clear to auscultation bilaterally. No RRW Heart: Regular rate and rhythm, no murmurs. No JVD Abdomen: Soft, nondistended. Bowel sounds present. Extremities: Warm, dry, well-perfused. No extremity edema. Neuro: Alert and oriented x 4, face symmetric, moves 4 extremities well Psych: Normal affect and behavior Results & Data Results & Data Vital Signs (Past 12 Hours) Vital Signs Temp Pulse Pulse Resp BP Pulse Ox O2 Del Method 10/23/23 11:30 36.8 C 84 18 136/79 97 Room Air 10/23/23 08:00 85 10/23/23 07:42 36.6 C 83 19 129/88 95 Room Air Laboratory Results 10/23/23 05:46 10/23/23 05:46 PG Care Time/CCT Total # of Minutes Spent Total Time Spent with Patient: I personally spent: 55 minutes today on clinical care activities including: reviewing chart notes and vital signs reviewing labs reviewing studies discussion with property loss insurance claim adjuster, bedside RN examining and counseling the patient counseling the patient's family writing orders documentation Coding Level of Care Code 95494 SUB INP/OBS CARE 3/50MIN Diagnoses Atrial tachycardia I47.19 Type 2 diabetes mellitus without complication, without long-term current use of insulin E11.9 Diabetes mellitus type: type 2 Diabetes mellitus intermediate manager insulin use: without intermediate manager use Diabetes mellitus complication status: without complication Abnormal CXR R93.89 Essential hypertension I10 Hypertension type: essential hypertension Fatty infiltration of liver K76.0 Gastroesophageal reflux disease without esophagitis K21.9 Esophagitis presence: without esophagitis (2) Diabetes Diabetes mellitus type: type 2 Diabetes mellitus intermediate manager insulin use: w ithout intermediate manager use Diabetes mellitus complication status: without complication Qualified Code(s): E11.9 - Type 2 diabetes mellitus without complications (4) Hypertension Hypertension type: essential hypertension Qualified Code(s): I10 - Essential (primary) hypertension (6) Esophageal reflux Esophagitis presence: without esophagitis Qualified Code(s): K21.9 - Gastro- esophageal reflux disease without esophagitis
[2023-10-23] MEDS: METOPROLOL TARTRATE 25 MG TAB PO SCH (20:30)
--- NOTE | 2023-10-24 11:16 | Cardiology Progress Note ---
Date of Service October 24, 2023 Assessment & Plan (1) Atrial tachycardia: (2) Atrial fibrillation with rapid ventricular response: (3) Near syncope: Plan ASSESSMENT/PLAN: 1. Atrial tachycardia/atrial fibrillation: With his shorter episodes since discontinuation of amiodarone, rhythm appears to be atrial tachycardia. Do not believe that he requires anticoagulation for stroke risk reduction as no clear atrial fibrillation. Amiodarone successfully suppressed the arrhythmia but after discussion, attempted beta-gabino. Had increased burden after discontinuation of amiodarone but with each dose of beta-gabino, rhythm seem to be successfully suppressed. Will increase metoprolol to 50 mg twice daily to hopefully further suppress his atrial tachycardia. Recommend evaluation by EP, especially if has significant recurrent symptoms to help determine next plan of care, possibly EP study and ablation. 2. Near syncope: Likely due to his presenting arrhythmia with heart rates in the low 200s. Near-syncope has resolved once predominant rhythm became sinus. 3. Disposition: Okay for discharge from a cardiology perspective. Patient care communicated with Dr. Vaz of the primary hospitalist service. Admission and Anticipated Discharge Date Admission Date: October 22, 2023 Subjective Patient was seen on 10/24/2019 4 in the morning. He had minor palpitations intermittently but symptoms seemed to improve with each dose of metoprolol. He has not had any sustained symptoms or significant symptoms as he did on presentation. He denies chest pain, shortness of breath, syncope, near syncope, edema, or bleeding. His was present at the bedside. Physical Exam Physical Exam: Gen.: No acute distress. Alert and oriented. HEENT: Anicteric sclera. Neck: No JVD. Cardiac: No ventricular heave. Regular. Normal S1-S2. No murmurs, rubs, or gal lops. Pulmonary: Clear to auscultation bilaterally without wheezes, rales, or rhonchi. Abdomen: Soft, nontender, nondistended, with normoactive bowel sounds. No bruits noted. Extremities: 2+ radial pulses bilaterally. 2+ posterior tibialis pulses bilaterally. No edema or cyanosis. Psychiatric: Affect appears appropriate. Results & Data Vital Signs (Past 12 Hours) Vital Signs Temp Pulse Pulse Resp BP BP Pulse Ox 10/24/23 11:04 36.9 C 79 18 125/86 98 10/24/23 09:07 87 10/24/23 08:36 82 04/07/24 07:20 36.5 C 62 18 132/76 97 10/24/23 03:20 36.5 C 63 16 111/75 97 10/23/23 23:19 36.5 C 72 17 105/72 98 O2 Del Method 10/24/23 11:04 Room Air 10/24/23 09:07 10/24/23 08:36 10/24/23 07:20 Room Air 10/24/23 03:20 Room Air 10/23/23 23:19 Room Air Laboratory Results Laboratory Results - last 24 hr 10/23/23 10/23/23 10/23/23 11:33 14:07 16:26 Heparin Anti-Xa, Unfract 0.26 L POC Glucose 113 H 115 H 10/23/23 10/24/23 10/24/23 20:11 07:07 11:01 Heparin Anti-Xa, Unfract POC Glucose 109 H 154 H 111 H Diagnostic Findings Telemetry reviewed and demonstrated predominantly sinus rhythm with very short runs of atrial tachycardia, all less than 10 bpm on personal review. Overall burden much less than on presentation and burden seem to improve after each dose of beta-gabino. Medications Administered Current Inpatient Medications Apixaban (Apixaban 5 Mg Tablet) 5 mg PO Q12H ARISTEO Stop: 11/22/23 16:59 Last Admin: 10/24/23 06:02 Dose: 5 mg Dextrose (Dextrose 50% 50 Ml Syringe) 25 - 50 ml IV UD PRN; Protocol PRN Reason: Hypoglycemia Protocol Stop: 11/21/23 15:31 Glucagon (Glucagon For Inj 1 Mg Vial) 1 mg SQ UD PRN; Protocol PRN Reason: Hypoglycemia Protocol Stop: 11/21/23 15:31 Glucose (Glucose 10 Tab/Tube) 4 - 8 tab PO UD PRN; Protocol PRN Reason: Hypoglycemia Treatment Stop: 11/21/23 15:31 Glucose (Glucose 40% Gel 15 Gm Tube) 15 - 30 gm PO UD PRN; Protocol PRN Reason: Hypoglycemia Protocol Stop: 11/21/23 15:31 Insulin Aspart (Insulin Aspart Per Unit Charge) 0 units SC ACHS ARISTEO Stop: 11/21/23 16:29 Last Admin: 10/24/23 09:06 Dose: Not Given Metoprolol Tartrate (Metoprolol Tartrate 25 Mg Tab) 25 mg PO BID ARISTEO Stop: 11/22/23 20:59 Last Admin: 10/24/23 09:08 Dose: 25 mg Miscellaneous (Carbohydrates For Hypoglycemia ) 15 - 30 gm PO UD PRN PRN Reason: Hypoglycemia Protocol Stop: 11/21/23 15:31 Pantoprazole Sodium (Pantoprazole 40 Mg Tab) 40 mg PO HS ARISTEO Stop: 11/21/23 20:59 Last Admin: 10/23/23 20:30 Dose: 40 mg PG Care Time/CCT Total # of Minutes Spent Total Time Spent with Patient: Total time spent is greater than 50% in coordination of care (as documented) at patient's floor/unit and/or counseling patient: Coding Level of Care Code 14495 SUB INP/OBS CARE 3/50MIN Diagnoses Atrial tachycardia I47.19 Atrial fibrillation with rapid ventricular response I48.91 Near syncope R55
[2023-10-24] MEDS: METOPROLOL TARTRATE 25 MG TAB PO STA (13:08)
--- NOTE | 2023-10-24 18:15 | Discharge Summary ---
Date of Service October 24, 2023 Admission HPI Per Admitting Provider Anatoliy is a 53 year old male with a PMH significant for DMII, Sjogrens syndrome, HTN, fatty liver, and GERD who presented to the [facility] ED on 10/22/23 with complaints of ongoing heart palpitations and left jaw pain which began on 10/16/23. On arrival to the ED he was found to be in new onset afib RVR with HR in the 220's and BP of 107/47 but otherwise stable. Labs were significant for a leukocytosis of 12, AG of 12 with bicarb WNL, ALT of 73, high sen trop WNL and TSH of 5.53 with free T4 of 0.78. Chest xray was read as "1. No acute cardiopulmonary findings. 2. Right upper mediastinal contour abnormality, measuring approximately 3.5 cm. This may be artifactual however a chest CT with IV contrast is recommended to exclude a vascular abnormality or lymphadenopathy.". The patient was initially given 500 mL NSS, 20 meq PO KCL, 1gm IV mag sulfate, 2.5 mg IV lopressor, and 15 mg IV Diltiazem without significant improvement. He was then placed on a Cardizem drip but this also was unsuccessful in improving his rate or rhythm. Cardiology was consulted and recommended the patient be switched to an Amiodarone drip. Prior to admission the patient was started on the Amiodarone drip with bolus. At the time of the exam the patient was sitting in bed in no acute distress. He states that when he first started to develop heart palpitations with mild left jaw pain on 10/15 he thought he was having a panic attack. He states he has had increased stress at work recently. Over the past week he has had intermittent periods of heart palpitations, lightheadedness with standing/walking, with some SOB when his palpitations were at it's worst. He denies recent significant alcohol intake, tobacco abuse, or recreational drug use. His brother does have afib as well and has had to be hospitalized multiple times in the past for RVR. He denies a previous his of major bleeding and is in agreement with starting a heparin drip for now with his CHA2DS.2-VASc score of 2, giving him an increased risk of stroke. He denies recent fever, chills, cough, chest pain, pleuritic chest pain, hemoptysis, nausea, vomiting, abd pain, dysuria hematuria, melena, diarrhea, LE swelling, and recent trauma. Principal Diagnosis Supraventricular tachyarrhythmia - atrial tachycardia or atrial fibrillation, unable to determine Discharge Exam PHYSICAL EXAMINATION Last 24h vital signs reviewed, see documentation in flowsheet General: sitting at bedside table working on computer HEENT: Normocephalic, atraumatic, pupils round and equal, sclerae anicteric, no conjunctival injection, moist mucus membranes Lungs: Normal respiratory effort. Clear to auscultation bilaterally. No RRW Heart: Regular rate and rhythm, no murmurs. No JVD Abdomen: nondistended. Bowel sounds present. Extremities: Warm, dry, well-perfused. No extremity edema. Neuro: Alert and oriented x 4, face symmetric, moves 4 extremities well Psych: Normal affect and behavior Discharge Data Allergies Allergy/AdvReac Type Severity Reaction Status Date / Time pollen extracts Allergy Mild Runny Nose Verified 10/01/23 08:07 No Known Drug Allergies Allergy Verified 10/01/23 08:07 Consultations 10/22/23 14:11 ED Decision to Admit Stat 10/22/23 14:28 Consult Cardiology Stat Ordered Studies 10/23/23 08:26 CT chest diagnostic w con Routine Chest X-Ray 10/22/23 12:23 XR chest 1V portable CLINICAL HISTORY: Chest pain, nonspecific COMPARISON STUDY: Chest radiograph November 30, 2011. FINDINGS: Lung volumes are normal. Lungs are clear. There is no pneumothorax or pleural effusion. Cardiac size is normal. A right upper mediastinal contour abnormality measuring approximately 3.5 cm is noted. There is no evidence for pulmonary edema. IMPRESSION: 1. No acute cardiopulmonary findings. 2. Right upper mediastinal contour abnormality, measuring approximately 3.5 cm. This may be artifactual however a chest CT with IV contrast is recommended to exclude a vascular abnormality or lymphadenopathy. ACT 112: Negative or not required by law. Electronically signed by: Brent Boone M.D. 10/22/2023 1:[address] 10/23/23 08:26 CT chest diagnostic w con CLINICAL HISTORY: right mediastinal abnormality on CXR TECHNIQUE: Multidetector row helical CT of the chest was performed with intravenous contrast. Coronal and sagittal reformations were obtained. Automated dose lowering techniques and/or adjustment according to patient size were utilized for this exam. CT DOSE: 983.29 mGy.cm Comparison: Comparison is made to chest radiograph 10/22/2023 FINDINGS: Lungs and pleura: There is a 2 mm nodule in the left lower lobe (series 4 image 174). Heart and pericardium: Heart size is normal. No pericardial effusion. Vessels: Mild atherosclerotic changes in the aorta and coronary arteries. Mediastinum and alejo: Unremarkable. Chest wall and lower neck: Unremarkable. Abdomen: Hepatic steatosis is noted. Right renal cyst is seen. Bones: Unremarkable. IMPRESSION: 1. No acute abnormality and in particular no density to correspond to the density seen in the right upper mediastinal contour. This likely represented prominent right subclavian artery. 2. 2 mm nodule in the left lower lobe. According to Fleischner criteria, no follow-up is required in low risk patients, in high-risk patients, a 12 month follow-up CT can be optionally performed. ACT 112: Negative or not required by law. Electronically signed by: Vinicio Rai M.D. 10/23/2023 3:30 PM 10/23/23 05:46 10/23/23 05:46 Hospital Course (1) Atrial tachycardia: 53 y/o with type 2 DM and HTN presented with lightheadedness, palpitations, near syncope found to be in an SVT rate 200. This did not respond to diltiazem 15 mg IV so he was started on IV amiodarone bolus and drip. He converted to NSR. After that he was asymptomatic. TTE was technically difficult study but was normal. TSH normal. EKGs and tele reviewed by consulting digital media designer. There is irregularity so unable to rule out afib, however the high initial rate and ongoing very short bursts of SVT make it seem more likely atrial tachycardia. After discussion with Mr. Mello about risks and benefits of oral amiodarone temporarily vs trial of B-gabino, decided on toprol XL which was initiated. Following night on telemetry had short bursts of tachycardia (few beats) did have palpitations a few times, these bursts decreased after am dose of metoprolol. Discussed with Dr. Chavez and increased metoprolol dose for discharge. Guillotine Operator will make EP referral. CHADS Vasc is 2 so he would benefit from anticoagulation if this is in fact afib, so initiated apixaban. Discussed risks and benefits of blood thinners with him 10/22, 10/23 as well as return precautions if sx GI bleeding, head trauma, altered mental status or stroke sx. If proven to not be afib, or if he undergoes successful ablation in future, anticoagulation can be stopped. (2) Diabetes: Continue metformin (3) Abnormal CXR: Noted to have a Right upper mediastinal contour abnormality, measuring approximately 3.5 cm on admission CXR -CT chest with contrast obtained - personally reviewed CT images and report - there is no mediastinal or RUL abnormality. Radiologist thought CXR appearance was probably prominent subclavian artery. 2 mm lower lobe pulmonary nodule does not require dedicated CT follow up by Fleischner criteria as he is low risk, never smoker. -discussed findings with the patient and his (4) Hypertension: -Hold lisinopril since discharging on increased dose of metoprolol -follow up primary care (5) Fatty infiltration of liver: Does not drink much alcohol so likely metabolic / NAFLD -lifestyle measures and diabetic treatment advised - follow up in primary care (6) Esophageal reflux: -Daily pantoprazole Total Time Total Time Spent Total Time Spent (In Minutes): I personally spent: 40 minutes today on clinical care activities including: reviewing chart notes and vital signs discussion with digital media designer examining and counseling the patient Writing discharge instruction writing orders, prescriptions documentation Discharge Plan Discharge Items Patient Disposition: Home - Self-Care Reason For Visit: NEW ONSET AFIB RVR Discharge Diagnosis: Tachycardia - atrial tachycardia versus atrial fibrillation Condition on Discharge: Good Activity: Resume your previous activity Non-emergency contact: Primary Care Provider and Guillotine Operator Call non-emergency contact if: your symptoms worsen Follow-up/Referrals: Tom De Guzman DO [Primary Care Provider] - 10/26/23 9:20 am Diet: Carb Consistent or DM2 Addtl Attending Provider Instructions: You were treated for tachycardia It is not entirely clear whether you had atrial fibrillation or another type atrial tachycardia. The digital media designer is suspicious of atrial tachycardia because of the very rapid rate when you first came in, and the ongoing very short bursts. We will make a referral to an media relations coordinator - a digital media designer who specializes in heart rhythm problems Take metoprolol to slow your heart rate and suppress the fast rate. It might go down into the 50s but that is ok as long as you are not lightheaded/weak Heart rate could go down into the 40s while sleeping, but again that's ok as long as you are not having symptoms from it Stop your lisinopril for now - we don't want your blood pressure to go too low. We prescribed eliquis (apixaban) in case this is atrial fibrillation, to reduce your risk of stroke. We discussed the risks and benefits of anticoagulation, including the risks of gastrointestinal bleeding - seek medical attention if you have black/tarry or bloody stool There is also a very small but real risk of intracranial hemorrhage - related to head trauma or bleeding-type stroke, that can be life threatening. Call 911 if you have altered mental status or symptoms of stroke (weakness or numbness of face/arm/leg, trouble speaking or understanding, trouble with walking/balance You have a lot of fat in your liver - this is part of the metabolic syndrome, related to diabetes and hypertension -reducing sugar and simple carbohydrate in your diet and replacing with vegetables, lean meats, and complex carbohydrates (whole grains) can help with this -eventually increasing your exercise (when the heart issue is stabilized) and weight loss will also help -Mediterranean diet is probably the healthiest for your heart and metabolism The chest x-ray abnormality was nothing to worry about - chest CT showed no abnormalities in that area - probably was the shadow of your subclavian artery There was a tiny lung nodule in the left lower lobe - 2mm - this is too small to require follow up testing by current radiology guidelines It was a pleasure seeing you in the hospital Smita Vaz MD Pending Studies at Discharge: No Stand-Alone Forms: My [facility] [employer], Smoking Cessation Medications and DC Order Prescriptions: New Eliquis 5 mg Tablet 5 mg PO Q12H Qty: 60 0RF metoprolol tartrate 50 mg Tablet 50 mg PO BID Qty: 60 0RF Continued Shingrix gE Antigen Component 50 mcg suspension for reconstitution 50 mcg IM ONCE Qty: 0.5 0RF cyanocobalamin (vitamin B-12) [Vitamin B-12] 2,000 mcg Tablet Extended Release 2,000 mcg PO DAILY metformin 1,000 mg tablet 1,000 mg PO BID Rx Instructions: TAKE 1 TABLET TWICE A DAY FOR HYPERGLYCEMIA esomeprazole magnesium [Nexium] 40 mg capsule,delayed release(DR/EC) 40 mg PO DAILY Discontinued lisinopril 10 mg tablet 10 mg PO QPM Rx Instructions: TAKE 1 TABLET DAILY FOR HYPERTENSION Discharge Orders: Discharge Order (Routine); Ordered 10/24/23 Ordered By: Smita Vaz Admission Data Admit Date/Time: 10/22/23 15:07 Attending Provider: Smita Vaz Admit Provider: Tonio Acosta Primary Care Provider: Tom De Guzman Other Providers: Tonio Acosta; Ronnie Ramírez Other Interventions: Discharge Summary Assessment (RN) Last Done: 10/24/23 13:00 Coding Level of Care Code 90452 INP/OBS DISCH >30 MIN Diagnoses Atrial tachycardia I47.19 Type 2 diabetes mellitus without complication, without long-term current use of insulin E11.9 Diabetes mellitus type: type 2 Diabetes mellitus buttermaker continuous churn insulin use: without assisted use Diabetes mellitus complication status: without complication Abnormal CXR R93.89 Essential hypertension I10 Hypertension type: essential hypertension Fatty infiltration of liver K76.0 Gastroesophageal reflux disease without esophagitis K21.9 Esophagitis presence: without esophagitis
[2023-10-24] MEDS ORDERED: METOPROLOL TARTRATE 50 MG TAB PO SCH (21:00)
== END 2023-10-24 13:22 | disposition home or self-care (01) | DRG 310 ==
LOC: ED 12:18 → SUATTDRO 15:07 → EDINP 15:07 → 2S 19:41